=== PATIENT | male | born 1955 | race Caucasian/White ===

== ENCOUNTER → 2020-08-03 | Outpatient (CLI) | payer MEDICARE ==
--- NOTE | 2020-07-30 13:02 | NUR ---
lmom with dr greer and anay nurse to have them call me with a working number for this pt.
--- NOTE | 2020-07-31 10:03 | NUR ---
VOIVEMAIL IS FULL COULD NOT LEAVE MSG
[~2020-08-03] VITALS: Ht 177.8 cm; Wt 69.0 kg
[~2020-08-03] MED LIST: AVODART0.5 MG PO; CARDURA8 MG PO; HCTZ 25MG25 MG PO
[2020-08-03 06:30] VITALS: BP 127/75; PULSE 83
[2020-08-03 07:36] VITALS: BP 139/78; PULSE 71
[2020-08-03 07:38] VITALS: BP 122/61; PULSE 91
[2020-08-03 07:39] VITALS: BP 109/58; PULSE 72
[2020-08-03 07:40] VITALS: BP 104/62; PULSE 66
[2020-08-03 07:41] VITALS: BP 118/73; PULSE 66
== END ==
LOC: COL.CARD 06:05
DX: R07.9 Chest pain, unspecified (principal); M25.562 Pain in left knee
CPT/HCPCS: A9500; J2785

== ENCOUNTER → 2020-08-04 | Outpatient (CLI) | payer MEDICARE | LOC: COL.RAD 07:11 | DX: M17.12 Unilateral primary osteoarthritis, left knee (principal); S83.242A Other tear of medial meniscus, current injury, left knee, initial encounter; R07.9 Chest pain, unspecified ==

== ENCOUNTER → 2020-08-12 | Outpatient (CLI) | payer MEDICARE | LOC: COL.VAS 11:52 | DX: I34.0 Nonrheumatic mitral (valve) insufficiency (principal); I51.7 Cardiomegaly; M25.552 Pain in left hip ==

== ENCOUNTER → 2022-04-12 | Outpatient (CLI) | payer MEDICARE | LOC: COL.RAD 13:26 | DX: M51.36 Other intervertebral disc degeneration, lumbar region (principal); M48.061 Spinal stenosis, lumbar region without neurogenic claudication; M51.26 Other intervertebral disc displacement, lumbar region ==